=== PATIENT | female | born 1935 | race Caucasian/White ===

== ENCOUNTER 2021-02-25 21:34 | Inpatient (IN) | payer MEDICARE ==
[2021-02-26] MEDS ORDERED: Ondansetron PF 4 MG/2 ML Vial IVP PRN (00:35)
[2021-02-26] MEDS ORDERED: Dextrose 5% in Water 1,000 ML IV PRN (00:35)
[2021-02-26] MEDS ORDERED: Dextrose 50% Abboject 50 ML SYRINGE SLOW IVP PRN (00:35)
[2021-02-26] MEDS ORDERED: Cyclobenzaprine 10 MG TAB PO PRN (00:50)
[2021-02-26] MEDS: Morphine 2 MG/ML VIAL SLOW IVP PRN ×3 (00:55→06:02)
[2021-02-26 01:11] LABS: #Lymphocytes 0.9 thou/uL (1.20-3.40); #Monocytes 0.6 thou/uL (0.11-0.59); #Neutrophils 7.6 thou/uL (1.40-6.50); %Basophils 0.3 % (0.0-1.0); %Eosinophils 0.2 % (0.0-10.0); %Lymphocytes 9.8 % (21.0-51.0); %Neutrophils 83.6 % (42.0-75.0); Hemoglobin 11.2 g/dL (12.0-16.0); Mean Corpuscular HGB CONC 33.5 g/dL (32.0-36.0); Mean Corpuscular Hemoglobin 31.9 pg (27.0-31.0); Mean Corpuscular Volume 95.5 fL (78.0-98.0); Mean Platelet Volume 6.9 fL (7.4-10.4); Platelet Count 175 thou/uL (130-400); RBC Distribution Width 12.4 % (11.5-14.5); Red Blood Cell (RBC) Count 3.51 mill/uL (4.20-5.40); White Blood Cell (WBC) Count 9.1 thou/uL (4.8-10.8)
[2021-02-26 01:19] LABS: Hemoglobin A1c 6.5 % (4.0-6.0)
[2021-02-26 01:23] VITALS: BMI 22.3
[2021-02-26 01:34] LABS: ALT (SGPT) 14 U/L (8-55); AST (SGOT) 18 U/L (5-34); Albumin 3.7 g/dL (3.4-4.8); Alkaline Phosphatase 44 U/L (40-110); Anion Gap 12 mmol/L (10-20); BUN (Urea Nitrogen) 12 mg/dL (9.8-20.1); Bilirubin, Direct 0.2 mg/dL (0.1-0.3); Bilirubin, Total 0.3 mg/dL (0.2-1.2); Calc. Creatinine Clearance 57 mL/min (70-130); Calcium 8.7 mg/dL (7.8-10.44); Carbon Dioxide 26 mmol/L (23-31); Chloride 103 mmol/L (98-107); Glucose 187 mg/dL (83-110); Magnesium 1.4 mg/dL (1.6-2.6); Phosphorus 3.6 mg/dL (2.3-4.7); Potassium 3.8 mmol/L (3.5-5.1); Protein, Total 6.4 g/dL (5.8-8.1); Sodium 137 mmol/L (136-145)
[2021-02-26 01:42] LABS: INR-International Normal Ratio 1.1; PTT 29.8 sec (22.9-36.1); Prothrombin Time 14.3 sec (12.0-14.7)
[2021-02-26] MEDS: Acetaminophen 325 MG TAB PO SCH ×4 (02:51→21:22)
[2021-02-26] MEDS: Sodium Chloride 0.9% 1,000 ML IV SCH ×2 (02:56→22:39)
[2021-02-26] MEDS ORDERED: Magnesium Sulfate 3 GM in Sodium Chloride 0.9% 100 ML IV SCH (07:00)
[2021-02-26] MEDS: Polyethylene Glycol 3350 17 GM Packet PO SCH (09:55)
[2021-02-26] MEDS: Famotidine 20 MG TAB PO SCH ×2 (09:55→21:23)
[2021-02-26] MEDS: Senokot S 8.6-50 MG TAB PO SCH ×2 (09:55→21:23)
[2021-02-26] MEDS ORDERED: COVID-19 VACC,AD26(JANSSEN)/PF 0.5 ML SYRINGE IM ONE (12:00)
[2021-02-26 13:08] LABS: SARS-CoV-2 PCR by NAA Not Detected (NotDetected)
[2021-02-26] MEDS ORDERED: Fentanyl 100 MCG/2 ML VIAL ONE ×4 (14:41→17:38)
[2021-02-26] MEDS ORDERED: CEFAZOLIN 2 GM in Premix Bag 1 BAG IVPB SCH (15:00)
[2021-02-26] MEDS ORDERED: Esmolol 100 MG/10 ML VIAL ONE (15:45)
[2021-02-26] MEDS ORDERED: Rocuronium Bromide 10 MG/ML (10ML VIAL) ONE (15:45)
[2021-02-26] MEDS ORDERED: Ondansetron PF 4 MG/2 ML Vial ONE (15:45)
[2021-02-26] MEDS ORDERED: PROPOFOL 200 MG/20 ML VIAL ONE (15:45)
[2021-02-26] MEDS ORDERED: Glycopyrrolate 0.2 MG/ML 5 ML SYRINGE ONE (15:45)
[2021-02-26] MEDS ORDERED: Dexamethasone 20 MG/5 ML VIAL ONE (15:45)
[2021-02-26] MEDS ORDERED: Lidocaine 1% PF 5 ML VIAL ONE (15:45)
[2021-02-26] MEDS ORDERED: Ondansetron HCl/PF 4 MG/2 ML Vial IVP PRN (17:02)
[2021-02-26] MEDS ORDERED: Ketorolac Tromethamine 30 MG/ML VIAL IVP PRN (17:02)
[2021-02-26] MEDS ORDERED: HYDROmorphone 2 MG/ML VIAL SLOW IVP PRN (17:02)
[2021-02-26] MEDS: CEFAZOLIN 2 GM in Premix Bag 1 BAG IVPB SCH (21:25)
[2021-02-27] MEDS: Acetaminophen 325 MG TAB PO SCH ×4 (00:48→20:28)
[2021-02-27 05:40] LABS: #Lymphocytes 0.9 thou/uL (1.20-3.40); #Monocytes 0.7 thou/uL (0.11-0.59); #Neutrophils 5.7 thou/uL (1.40-6.50); %Basophils 0.2 % (0.0-1.0); %Eosinophils 0.1 % (0.0-10.0); %Lymphocytes 11.9 % (21.0-51.0); %Monocytes 9.1 % (0.0-10.0); %Neutrophils 78.7 % (42.0-75.0); Hemoglobin 8.2 g/dL (12.0-16.0); Mean Corpuscular HGB CONC 33.3 g/dL (32.0-36.0); Mean Corpuscular Hemoglobin 32.2 pg (27.0-31.0); Mean Corpuscular Volume 96.7 fL (78.0-98.0); Mean Platelet Volume 7.3 fL (7.4-10.4); Platelet Count 165 thou/uL (130-400); RBC Distribution Width 12.5 % (11.5-14.5); Red Blood Cell (RBC) Count 2.54 mill/uL (4.20-5.40); White Blood Cell (WBC) Count 7.2 thou/uL (4.8-10.8)
[2021-02-27 06:00] LABS: Anion Gap 10 mmol/L (10-20); BUN (Urea Nitrogen) 9 mg/dL (9.8-20.1); Calc. Creatinine Clearance 60 mL/min (70-130); Calcium 7.9 mg/dL (7.8-10.44); Carbon Dioxide 26 mmol/L (23-31); Chloride 103 mmol/L (98-107); Glucose 238 mg/dL (83-110); Magnesium 1.9 mg/dL (1.6-2.6); Potassium 4.1 mmol/L (3.5-5.1); Sodium 135 mmol/L (136-145)
[2021-02-27] MEDS: Insulin Regular 300 UNITS/3 ML VIAL SC PRN (06:29)
[2021-02-27] MEDS: CEFAZOLIN 2 GM in Premix Bag 1 BAG IVPB SCH (06:31)
[2021-02-27] MEDS ORDERED: Magnesium 2 GM/50 ML 2 GM in Premix Bag 1 BAG IVPB SCH (07:30)
[2021-02-27] MEDS ORDERED: Ferrous Sulfate 325 MG TAB PO SCH (08:00)
[2021-02-27] MEDS: metFORMIN 500 MG TAB PO SCH ×2 (09:00→17:00)
[2021-02-27] MEDS: Ferrous Sulfate 325 MG TAB PO SCH ×2 (09:00→20:29)
[2021-02-27] MEDS: Famotidine 20 MG TAB PO SCH ×2 (09:00→20:28)
[2021-02-27] MEDS: Senokot S 8.6-50 MG TAB PO SCH ×2 (09:00→20:30)
[2021-02-27] MEDS: Ascorbic Acid 500 mg Chewable Tablet PO SCH ×2 (09:00→20:29)
[2021-02-27] MEDS ORDERED: Non-Formulary Item 1 EACH (Metformin Hcl [Metformin Er Gastric] 500 MG Tabergr24h) PO SCH (09:00)
[2021-02-27] MEDS: Enoxaparin Sodium 40 MG/0.4 ML SYRINGE SC SCH (09:00)
[2021-02-27 10:00] LABS: #Monocytes 0.9 thou/uL (0.11-0.59); #Neutrophils 7.6 thou/uL (1.40-6.50); %Eosinophils 0.1 % (0.0-10.0); %Lymphocytes 10.1 % (21.0-51.0); %Monocytes 9.5 % (0.0-10.0); %Neutrophils 80.3 % (42.0-75.0); Hemoglobin 8.6 g/dL (12.0-16.0); Mean Corpuscular HGB CONC 33.5 g/dL (32.0-36.0); Mean Corpuscular Volume 95.4 fL (78.0-98.0); Mean Platelet Volume 7.2 fL (7.4-10.4); Platelet Count 178 thou/uL (130-400); RBC Distribution Width 12.4 % (11.5-14.5); Red Blood Cell (RBC) Count 2.68 mill/uL (4.20-5.40); White Blood Cell (WBC) Count 9.5 thou/uL (4.8-10.8)
[2021-02-27] MEDS: Polyethylene Glycol 3350 17 GM Packet PO SCH (10:38)
[2021-02-27] MEDS ORDERED: COVID-19 VACC,AD26(JANSSEN)/PF 0.5 ML SYRINGE IM ONE (11:00)
[2021-02-28] MEDS: Acetaminophen 325 MG TAB PO SCH ×4 (01:22→18:23)
[2021-02-28] MEDS: Insulin Regular 300 UNITS/3 ML VIAL SC PRN ×4 (06:33→22:09)
[2021-02-28] MEDS: metFORMIN 500 MG TAB PO SCH ×2 (09:07→16:47)
[2021-02-28] MEDS: Senokot S 8.6-50 MG TAB PO SCH ×2 (09:08→20:51)
[2021-02-28] MEDS: Ferrous Sulfate 325 MG TAB PO SCH ×2 (09:08→20:50)
[2021-02-28] MEDS: Famotidine 20 MG TAB PO SCH ×2 (09:08→20:49)
[2021-02-28] MEDS: Ascorbic Acid 500 mg Chewable Tablet PO SCH ×2 (09:09→20:49)
[2021-02-28] MEDS: Enoxaparin Sodium 40 MG/0.4 ML SYRINGE SC SCH (09:09)
[2021-02-28] MEDS: Polyethylene Glycol 3350 17 GM Packet PO SCH (09:21)
[2021-02-28] MEDS: traMADol HCl 50 MG TAB PO PRN (09:57)
[2021-02-28] MEDS ORDERED: Hydrocortisone Sod Succ/PF 100 mg/2 ml Vial IVP SCH ×2 (11:00→18:00)
[2021-02-28] MEDS: traMADol HCl 50 MG TAB PO SCH ×3 (14:29→23:53)
[2021-02-28] MEDS ORDERED: Midodrine HCl 5 MG TAB PO SCH (15:00)
[2021-02-28] MEDS: Gabapentin 300 MG CAP PO SCH ×2 (15:37→20:50)
[2021-02-28] MEDS: Midodrine HCl 5 MG TAB PO SCH ×2 (15:43→20:50)
[2021-02-28] MEDS ORDERED: Sodium Chloride 0.9% 500 ML IV SCH (22:00)
[2021-03-01] MEDS: Acetaminophen 325 MG TAB PO SCH ×4 (00:33→18:04)
[2021-03-01] MEDS: traMADol HCl 50 MG TAB PO SCH ×3 (05:35→18:05)
[2021-03-01] MEDS: Enoxaparin Sodium 40 MG/0.4 ML SYRINGE SC SCH (08:17)
[2021-03-01] MEDS: Ascorbic Acid 500 mg Chewable Tablet PO SCH ×2 (08:17→20:58)
[2021-03-01] MEDS: metFORMIN 500 MG TAB PO SCH ×2 (08:17→18:05)
[2021-03-01] MEDS: Famotidine 20 MG TAB PO SCH ×2 (08:18→20:57)
[2021-03-01] MEDS: Gabapentin 300 MG CAP PO SCH ×3 (08:19→20:59)
[2021-03-01] MEDS: Midodrine HCl 5 MG TAB PO SCH ×2 (08:20→14:54)
[2021-03-01] MEDS: Polyethylene Glycol 3350 17 GM Packet PO SCH (08:21)
[2021-03-01] MEDS: Ferrous Sulfate 325 MG TAB PO SCH ×2 (08:29→20:57)
[2021-03-01] MEDS: Senokot S 8.6-50 MG TAB PO SCH ×2 (08:29→20:57)
[2021-03-01 11:02] LABS: #Eosinphils 0.2 thou/uL (0.0-0.7); #Lymphocytes 1.4 thou/uL (1.20-3.40); #Monocytes 0.7 thou/uL (0.11-0.59); #Neutrophils 4.7 thou/uL (1.40-6.50); %Basophils 0.4 % (0.0-1.0); %Eosinophils 2.3 % (0.0-10.0); %Monocytes 10.4 % (0.0-10.0); %Neutrophils 66.8 % (42.0-75.0); Hemoglobin 7.1 g/dL (12.0-16.0); Mean Corpuscular HGB CONC 33.2 g/dL (32.0-36.0); Mean Corpuscular Volume 96.5 fL (78.0-98.0); Mean Platelet Volume 7.5 fL (7.4-10.4); Platelet Count 194 thou/uL (130-400); RBC Distribution Width 12.8 % (11.5-14.5); Red Blood Cell (RBC) Count 2.22 mill/uL (4.20-5.40); White Blood Cell (WBC) Count 7.1 thou/uL (4.8-10.8)
[2021-03-01 12:40] LABS: #Eosinphils 0.2 thou/uL (0.0-0.7); #Lymphocytes 1.7 thou/uL (1.20-3.40); #Monocytes 0.7 thou/uL (0.11-0.59); #Neutrophils 4.6 thou/uL (1.40-6.50); %Basophils 0.6 % (0.0-1.0); %Eosinophils 2.4 % (0.0-10.0); %Lymphocytes 23.6 % (21.0-51.0); %Monocytes 10.1 % (0.0-10.0); %Neutrophils 63.3 % (42.0-75.0); Hemoglobin 7.5 g/dL (12.0-16.0); Mean Corpuscular HGB CONC 33.3 g/dL (32.0-36.0); Mean Corpuscular Hemoglobin 32.3 pg (27.0-31.0); Mean Platelet Volume 7.4 fL (7.4-10.4); Platelet Count 186 thou/uL (130-400); RBC Distribution Width 12.6 % (11.5-14.5); Red Blood Cell (RBC) Count 2.32 mill/uL (4.20-5.40); White Blood Cell (WBC) Count 7.3 thou/uL (4.8-10.8)
[2021-03-01] MEDS ORDERED: Lactated Ringer's 500 ML IV SCH (14:15)
[2021-03-01] MEDS: Insulin Regular 300 UNITS/3 ML VIAL SC PRN (18:04)
[2021-03-01] MEDS: traMADol HCl 50 MG TAB PO PRN (21:01)
[2021-03-02] MEDS: traMADol HCl 50 MG TAB PO SCH ×3 (00:25→12:04)
[2021-03-02] MEDS: Acetaminophen 325 MG TAB PO SCH ×4 (00:27→19:41)
[2021-03-02] MEDS: Insulin Regular 300 UNITS/3 ML VIAL SC PRN (06:09)
[2021-03-02 06:33] LABS: #Basophils 0.1 thou/uL (0.0-0.2); #Eosinphils 0.2 thou/uL (0.0-0.7); #Lymphocytes 1.4 thou/uL (1.20-3.40); #Monocytes 0.7 thou/uL (0.11-0.59); #Neutrophils 5.9 thou/uL (1.40-6.50); %Basophils 0.7 % (0.0-1.0); %Eosinophils 2.5 % (0.0-10.0); %Lymphocytes 16.6 % (21.0-51.0); %Monocytes 7.9 % (0.0-10.0); %Neutrophils 72.3 % (42.0-75.0); Hemoglobin 8.2 g/dL (12.0-16.0); Mean Corpuscular HGB CONC 33.2 g/dL (32.0-36.0); Mean Corpuscular Hemoglobin 31.6 pg (27.0-31.0); Mean Corpuscular Volume 95.2 fL (78.0-98.0); Mean Platelet Volume 6.6 fL (7.4-10.4); Platelet Count 190 thou/uL (130-400); RBC Distribution Width 12.9 % (11.5-14.5); White Blood Cell (WBC) Count 8.2 thou/uL (4.8-10.8)
[2021-03-02 06:55] LABS: Anion Gap 10 mmol/L (10-20); BUN (Urea Nitrogen) 9 mg/dL (9.8-20.1); Calc. Creatinine Clearance 63 mL/min (70-130); Calcium 8.5 mg/dL (7.8-10.44); Carbon Dioxide 28 mmol/L (23-31); Chloride 102 mmol/L (98-107); Glucose 171 mg/dL (83-110); Magnesium 1.8 mg/dL (1.6-2.6); Phosphorus 2.6 mg/dL (2.3-4.7); Potassium 3.7 mmol/L (3.5-5.1); Sodium 136 mmol/L (136-145)
[2021-03-02] MEDS: Ferrous Sulfate 325 MG TAB PO SCH ×2 (08:56→21:07)
[2021-03-02] MEDS: Senokot S 8.6-50 MG TAB PO SCH ×2 (08:56→21:07)
[2021-03-02] MEDS: Famotidine 20 MG TAB PO SCH ×2 (08:56→21:08)
[2021-03-02] MEDS: Gabapentin 300 MG CAP PO SCH ×3 (08:56→21:07)
[2021-03-02] MEDS: Ascorbic Acid 500 mg Chewable Tablet PO SCH ×2 (08:56→21:07)
[2021-03-02] MEDS: metFORMIN 500 MG TAB PO SCH ×2 (08:56→17:08)
[2021-03-02] MEDS ORDERED: Magnesium Sulfate 2 GM in Sodium Chloride 0.9% 100 ML IV SCH (09:00)
[2021-03-02] MEDS: Polyethylene Glycol 3350 17 GM Packet PO SCH (09:02)
[2021-03-02] MEDS: Midodrine HCl 5 MG TAB PO SCH ×2 (10:22→17:01)
[2021-03-02 18:46] LABS: Anion Gap 12 mmol/L (10-20); BUN (Urea Nitrogen) 9 mg/dL (9.8-20.1); Calc. Creatinine Clearance 56 mL/min (70-130); Calcium 8.8 mg/dL (7.8-10.44); Carbon Dioxide 27 mmol/L (23-31); Chloride 98 mmol/L (98-107); Glucose 211 mg/dL (83-110); Magnesium 1.9 mg/dL (1.6-2.6); Sodium 133 mmol/L (136-145)
[2021-03-02] MEDS ORDERED: Enoxaparin Sodium 40 MG/0.4 ML SYRINGE SC SCH (19:45)
[2021-03-02] MEDS ORDERED: hydrALAZINE 20 MG/ML VIAL SLOW IVP PRN (20:39)
[2021-03-02] MEDS ORDERED: Sodium Chloride 0.9% 250 ML IV SCH (21:00)
[2021-03-02 21:46] LABS: Bacteria/HPF 4+ HPF (None Seen); Bilirubin Negative (Negative); Blood, Urine 3+ (Negative); Glucose, Urine (Dipstick) 300 mg/dL (Negative); Ketone, Urine 20 mg/dL (Negative); Leukocyte 500 Leu/uL (Negative); Nitrite Negative (Negative); Protein, Urine (Dipstick) 100 mg/dL (Neg-Trace); RBC/HPF Greater than 50 HPF (0-3); Squamous Epithelial None Seen HPF (0-3); WBC/HPF Greater than 50 HPF (0-3)
[2021-03-02 21:47] LABS: Clarity Cloudy (Clear)
[2021-03-02 21:48] LABS: Urine Culture Reflex Yes Yes
[2021-03-02 21:55] LABS: Lactic Acid 1.7 mmol/L (0.5-2.2)
[2021-03-02 22:10] LABS: Band 25 % (5-11); Eosinophils 1 % (0-10); Hemoglobin 8.6 g/dL (12.0-16.0); Lymphocytes 9 % (21-51); MDiff Complete? YES; Mean Corpuscular HGB CONC 34.7 g/dL (32.0-36.0); Mean Corpuscular Hemoglobin 32.7 pg (27.0-31.0); Mean Corpuscular Volume 94.2 fL (78.0-98.0); Mean Platelet Volume 6.8 fL (7.4-10.4); Monocytes 7 % (0-10); Neutrophil 55 % (42-75); Platelet Count 217 thou/uL (130-400); RBC Distribution Width 12.8 % (11.5-14.5); Red Blood Cell (RBC) Count 2.63 mill/uL (4.20-5.40); White Blood Cell (WBC) Count 7.6 thou/uL (4.8-10.8)
[2021-03-02] MEDS ORDERED: Sodium Chloride 0.9% 1,000 ML IV SCH (23:00)
[2021-03-02] MEDS ORDERED: Piperacillin/Tazobactam 3.375 GM in Sodium Chloride 0.9% 100 ML IVPB SCH ×3 (23:05→23:59)
[2021-03-03] MEDS: Acetaminophen 325 MG TAB PO SCH ×3 (00:03→12:20)
[2021-03-03] MEDS: Insulin Regular 300 UNITS/3 ML VIAL SC PRN ×4 (00:07→16:05)
[2021-03-03] MEDS ORDERED: Bisacodyl 10 MG SUPP PR PRN (03:29)
[2021-03-03 05:59] LABS: Anion Gap 12 mmol/L (10-20); BUN (Urea Nitrogen) 9 mg/dL (9.8-20.1); Calc. Creatinine Clearance 62 mL/min (70-130); Calcium 8.1 mg/dL (7.8-10.44); Carbon Dioxide 25 mmol/L (23-31); Chloride 100 mmol/L (98-107); Glucose 161 mg/dL (83-110); Magnesium 1.8 mg/dL (1.6-2.6); Phosphorus 3.3 mg/dL (2.3-4.7); Potassium 3.8 mmol/L (3.5-5.1); Sodium 133 mmol/L (136-145)
[2021-03-03 06:20] LABS: Hemoglobin 8.1 g/dL (12.0-16.0); Mean Corpuscular HGB CONC 34.2 g/dL (32.0-36.0); Mean Corpuscular Hemoglobin 32.4 pg (27.0-31.0); Mean Corpuscular Volume 94.7 fL (78.0-98.0); Platelet Count 205 thou/uL (130-400); RBC Distribution Width 12.8 % (11.5-14.5); Red Blood Cell (RBC) Count 2.49 mill/uL (4.20-5.40); White Blood Cell (WBC) Count 5.7 thou/uL (4.8-10.8)
[2021-03-03 06:51] LABS: Band 17 % (5-11); Eosinophils 1 % (0-10); Lymphocytes 22 % (21-51); MDiff Complete? YES; Monocytes 9 % (0-10); Neutrophil 51 % (42-75)
[2021-03-03] MEDS ORDERED: Piperacillin/Tazobactam 3.375 GM in Sodium Chloride 0.9% 100 ML IVPB SCH (08:00)
[2021-03-03] MEDS ORDERED: Magnesium Sulfate 3 GM in Sodium Chloride 0.9% 100 ML IV SCH (08:00)
[2021-03-03] MEDS ORDERED: Enoxaparin Sodium 40 MG/0.4 ML SYRINGE SC SCH ×2 (09:00)
[2021-03-03] MEDS ORDERED: Bisacodyl 10 MG SUPP PR SCH (09:00)
[2021-03-03] MEDS: Polyethylene Glycol 3350 17 GM Packet PO SCH (09:24)
[2021-03-03] MEDS: Senokot S 8.6-50 MG TAB PO SCH (09:25)
[2021-03-03] MEDS: Ascorbic Acid 500 mg Chewable Tablet PO SCH (09:25)
[2021-03-03] MEDS: Gabapentin 300 MG CAP PO SCH ×2 (09:26→15:31)
[2021-03-03] MEDS: metFORMIN 500 MG TAB PO SCH (09:26)
[2021-03-03] MEDS: Famotidine 20 MG TAB PO SCH (09:26)
[2021-03-03] MEDS: Ferrous Sulfate 325 MG TAB PO SCH (09:26)
[2021-03-03 16:22] VITALS: TEMP 98.5
[2021-03-03 18:04] VITALS: BP 112/69
== END 2021-03-03 17:53 | disposition swing bed (61) | DRG 480 ==
LOC: SURG B 21:34
PROVIDERS: ADMIT Specialist; ATTEND Specialist
PROC: 0QS736Z Reposition Left Upper Femur with Intramedullary Internal Fixation Device, Percutaneous Approach (ICD-10-PCS; principal; 2021-02-26)
PROC: 30233N1 Transfusion of Nonautologous Red Blood Cells into Peripheral Vein, Percutaneous Approach (ICD-10-PCS; 2021-03-01)
DX: S72.142A Displaced intertrochanteric fracture of left femur, initial encounter for closed fracture (principal); J18.9 Pneumonia, unspecified organism; D62 Acute posthemorrhagic anemia; N39.0 Urinary tract infection, site not specified; I10 Essential (primary) hypertension; E11.9 Type 2 diabetes mellitus without complications; M19.90 Unspecified osteoarthritis, unspecified site; M81.0 Age-related osteoporosis without current pathological fracture; E83.42 Hypomagnesemia; Z20.822 Contact with and (suspected) exposure to COVID-19; W01.0XXA Fall on same level from slipping, tripping and stumbling without subsequent striking against object, initial encounter; I95.1 Orthostatic hypotension; Y92.000 Kitchen of unspecified non-institutional (private) residence as the place of occurrence of the external cause; Z79.84 Long term (current) use of oral hypoglycemic drugs; Z79.899 Other long term (current) drug therapy
CPT/HCPCS: 0031A; 36415; 36416; 36430; 71045; 76000; 80048; 80076; 81001; 82533; 83036; 83605; 83735; 83880; 84100; 84145; 84484; 85007; 85025; 85027; 85610; 85730; 86850; 86900; 86901; 87040; 87077; 87086; 87186; 90471; 90732; 91303; 93005; 93010; 93970; C1713; G0009; J0690; J1100; J1650; J1720; J1815; J2270; J2405; J2543; J2704; J3010; J3475; J3490; J7030; P9016; U0003; U0005

== ENCOUNTER 2025-07-03 14:17 | Inpatient (IN) | payer MEDICAID, MEDICARE ==
[2025-07-03 15:06] LABS: #Basophils 0.04 10x3/uL (0.0-0.2); #Eosinophils 0.27 10x3/uL (0.0-0.7); #Monocytes 0.61 10x3/uL (0.11-0.59); #Neutrophils 3.11 10x3/uL (1.40-6.50); %Basophils 0.7 % (0.0-1.0); %Eosinophils 4.9 % (0.0-10.0); %Lymphocytes 26.8 % (21.0-51.0); %Monocytes 11.0 % (0.0-10.0); %Neutrophils 56.2 % (42.0-75.0); Hematocrit 34.0 % (36.0-47.0); Hemoglobin 11.0 g/dL (12.0-16.0); Mean Corpuscular Hemoglobin 28.5 pg (27.0-31.0); Mean Corpuscular Volume 88.1 fL (78.0-98.0); Platelet Count 204 10x3/uL (130-400); Red Blood Cell (RBC) Count 3.86 mill/uL (4.20-5.40); White Blood Cell (WBC) Count 5.53 10x3/uL (4.8-10.8)
[2025-07-03 15:21] LABS: ALT (SGPT) 11 U/L (Less than 34); AST (SGOT) 19 U/L (11-34); Albumin 3.6 g/dL (3.1-4.5); Alkaline Phosphatase 63 U/L (40-110); Anion Gap 16 mmol/L (10-20); BUN (Urea Nitrogen) 24 mg/dL (9.8-20.1); Bilirubin, Total 0.2 mg/dL (0.3-1.2); Calc. Creatinine Clearance 0 mL/min (70-130); Calcium 9.4 mg/dL (7.8-10.44); Carbon Dioxide 27 mmol/L (23-31); Chloride 102 mmol/L (98-107); Globulin 3.4 g/dL (2.4-3.5); Glucose 213 mg/dL (83-110); Potassium 3.9 mmol/L (3.5-5.1); Sodium 141 mmol/L (136-145)
[2025-07-03 16:45] LABS: Bacteria/HPF None Seen HPF (None Seen); CAUTI Indications for Culture Urological Procedure; Glucose, Urine (Dipstick) Normal (Negative); Leukocyte 500 Leu/uL (Negative); Protein, Urine (Dipstick) Negative (Neg-Trace); RBC/HPF 0-3 HPF (0-3); Specific Gravity, Urine 1.013 (1.002-1.036); WBC/HPF 0-3 HPF (0-3)
[2025-07-03 16:47] LABS: Urine Culture Reflex Yes Yes
[2025-07-03] MEDS ORDERED: Cefepime 2 GM VIAL ONE (19:06)
[2025-07-03] MEDS ORDERED: Ondansetron PF 4 MG/2 ML Vial IVP PRN (19:29)
[2025-07-03] MEDS ORDERED: Calcium Carbonate 500 MG ChewTAB PO PRN (19:29)
[2025-07-03] MEDS ORDERED: Guaifenesin DM 100-10/5 ML UDCUP PO PRN (19:29)
[2025-07-03] MEDS ORDERED: Glucagon 1 MG/ML KIT IM PRN (19:32)
[2025-07-03] MEDS ORDERED: Dextrose 50% Abboject 50 ML SYRINGE SLOW IVP PRN (19:32)
[2025-07-03 19:59] VITALS: BMI 24.1
[2025-07-03] MEDS: VANCOMYCIN 1.75 GM/350 ML Premix BAG IVPB SCH (20:53)
[2025-07-03] MEDS: Acetaminophen 325 MG TAB PO PRN (20:54)
[2025-07-03] MEDS: Ferrous Sulfate 325 MG TAB PO SCH (20:54)
[2025-07-04 05:49] LABS: #Basophils 0.05 10x3/uL (0.0-0.2); #Eosinophils 0.26 10x3/uL (0.0-0.7); #Monocytes 0.61 10x3/uL (0.11-0.59); #Neutrophils 2.56 10x3/uL (1.40-6.50); %Basophils 1.0 % (0.0-1.0); %Eosinophils 5.3 % (0.0-10.0); %Lymphocytes 29.5 % (21.0-51.0); %Monocytes 12.3 % (0.0-10.0); %Neutrophils 51.7 % (42.0-75.0); Hematocrit 33.9 % (36.0-47.0); Hemoglobin 10.7 g/dL (12.0-16.0); Mean Corpuscular Hemoglobin 28.5 pg (27.0-31.0); Mean Corpuscular Volume 90.4 fL (78.0-98.0); Platelet Count 189 10x3/uL (130-400); Red Blood Cell (RBC) Count 3.75 mill/uL (4.20-5.40); White Blood Cell (WBC) Count 4.95 10x3/uL (4.8-10.8)
[2025-07-04 06:04] LABS: Anion Gap 14 mmol/L (10-20); BUN (Urea Nitrogen) 17 mg/dL (9.8-20.1); Calc. Creatinine Clearance 61 mL/min (70-130); Calcium 8.7 mg/dL (7.8-10.44); Carbon Dioxide 25 mmol/L (23-31); Chloride 108 mmol/L (98-107); Glucose 91 mg/dL (83-110); Potassium 3.5 mmol/L (3.5-5.1); Sodium 143 mmol/L (136-145)
[2025-07-04] MEDS: Enoxaparin 40 MG (0.4 mL) SYRINGE SC SCH (09:15)
[2025-07-04] MEDS: Pantoprazole 40 MG DR.TAB PO SCH (09:15)
[2025-07-05 05:26] LABS: #Basophils 0.06 10x3/uL (0.0-0.2); #Eosinophils 0.31 10x3/uL (0.0-0.7); #Monocytes 0.49 10x3/uL (0.11-0.59); #Neutrophils 1.81 10x3/uL (1.40-6.50); %Basophils 1.5 % (0.0-1.0); %Eosinophils 7.9 % (0.0-10.0); %Lymphocytes 31.8 % (21.0-51.0); %Monocytes 12.5 % (0.0-10.0); %Neutrophils 46.0 % (42.0-75.0); Hematocrit 33.6 % (36.0-47.0); Hemoglobin 11.0 g/dL (12.0-16.0); Mean Corpuscular Hemoglobin 29.1 pg (27.0-31.0); Mean Corpuscular Volume 88.9 fL (78.0-98.0); Platelet Count 184 10x3/uL (130-400); Red Blood Cell (RBC) Count 3.78 mill/uL (4.20-5.40); White Blood Cell (WBC) Count 3.93 10x3/uL (4.8-10.8)
[2025-07-05 05:49] LABS: Anion Gap 12 mmol/L (10-20); BUN (Urea Nitrogen) 13 mg/dL (9.8-20.1); Calc. Creatinine Clearance 63 mL/min (70-130); Calcium 8.7 mg/dL (7.8-10.44); Carbon Dioxide 23 mmol/L (23-31); Chloride 110 mmol/L (98-107); Glucose 97 mg/dL (83-110); Potassium 3.3 mmol/L (3.5-5.1); Sodium 142 mmol/L (136-145)
[2025-07-05 11:48] VITALS: TEMP 97.9
[2025-07-05] MEDS: Nystatin Powder 15 GM BOT TOP SCH (17:30)
[2025-07-05 18:49] VITALS: BP 155/88
[2025-07-08] MEDS ORDERED: FLU (Fluad Triv) 25-26 (65UP)PF 45 MCG/0.5 ML Syringe IM ONE (09:00)
== END 2025-07-05 20:46 | DRG 640 ==
LOC: ERS 14:17 → ERHOLD 18:46 → T4-A 19:52 → OBSVTOIN 07-04 12:28
PROVIDERS: ADMIT Internal Medicine; ATTEND Internal Medicine
DX: E86.0 Dehydration (principal); G93.41 Metabolic encephalopathy; F05 Delirium due to known physiological condition; E11.40 Type 2 diabetes mellitus with diabetic neuropathy, unspecified; E87.20 Acidosis, unspecified; I10 Essential (primary) hypertension; F03.90 Unspecified dementia, unspecified severity, without behavioral disturbance, psychotic disturbance, mood disturbance, and anxiety; R53.81 Other malaise
CPT/HCPCS: 36415; 36416; 51702; 70450; 80048; 80053; 81001; 83605; 85025; 87040; 87077; 87086; 87186; 93005; 94760; 96365; 96372; 96375; G0378; J0692; J1650; J3375; J7030